=== PATIENT | male | born 1945 | race Caucasian/White ===

== ENCOUNTER 2017-08-18 22:19 | Emergency (ER) | payer OTHER ==
[~2017-08-18] VITALS: Ht 160 cm; Wt 59.0 kg
[2017-08-18 22:20] VITALS: BP_SYST 127
--- NOTE | 2017-08-18 22:30 | NUR ---
Placed in room 5 . Placed on wallpaper installer, blood pressure machine and pulse oximeter. To gown for exam. Side rails up. Report given to Panda LAGSO.
--- NOTE | 2017-08-18 22:30 | NUR ---
Pt came by BLS for SOB, weakness, fever, and cough. Pt hot, dry, and normal. Pt is tachycardic. Pt is in no distress. Will continue to monitor via automobile inspector. AAOx4.
--- NOTE | 2017-08-18 22:32 | NUR ---
ER Dr. Stanton at bedside examining patient.
[2017-08-18] MEDS ORDERED: NS 1000 ML BAG IV ONE (22:45)
[2017-08-18 23:10] LABS: BASOPHILS % (AUTO) 0.7 % (0.0-2.0); EOSINOPHILS % (AUTO) 0.3 % (0.0-4.0); HEMATOCRIT 43.1 % (36-54); HEMOGLOBIN 14.6 g/dL (14.0-18.0); LYMPHOCYTES # (AUTO) 0.5 K/uL (1.0-5.5); LYMPHOCYTES % (AUTO) 16.4 % (20.5-51.5); MEAN CORPUSCULAR HEMOGLOBIN 31 pg (27-31); MEAN CORPUSCULAR HGB CONC 34 % (32-36); MEAN CORPUSCULAR VOLUME 91 fL (79.0-98.0); MONOCYTES % (AUTO) 1.1 % (1.7-9.3); NEUTROPHILS # (AUTO) 2.4 K/uL (1.8-7.7); NEUTROPHILS % (AUTO) 81.5 % (40.0-70.0); PLATELET COUNT (AUTO) 173 K/uL (130-430); RED BLOOD CELL COUNT(AUTO) 4.76 MIL/uL (4.2-6.2); RED CELL DISTRIBUTION WIDTH 12.1 % (9.0-15.0); WHITE BLOOD COUNT (AUTO) 2.9 K/uL (4.8-10.8)
[2017-08-18 23:20] LABS: CREATININE 0.98 mg/dL (0.55-1.30); POTASSIUM 4.2 mmol/L (3.5-5.1)
[2017-08-18 23:24] LABS: PROTHROMBIN TIME 9.9 SECS (9.5-12.5)
[2017-08-18 23:25] LABS: ALBUMIN 3.5 g/dL (3.4-4.8); TOTAL BILIRUBIN 0.5 mg/dL (0.0-1.0)
--- NOTE | 2017-08-18 23:40 | NUR ---
# 20 gauge angiocath placed to L AC. Use of asceptic technique. Opsite placed over site. Blood return noted. Flushed with 10 cc of normal saline. No evidence of infiltration noted. Patient tolerated well.
[2017-08-19 00:44] LABS: BILIRUBIN,URINE NEGATIVE (NEGATIVE); BLOOD, URINE NEGATIVE (NEGATIVE); CLARITY/URINE CLEAR (CLEAR); COLOR,URINE YELLOW (YELLOW); GLUCOSE,URINE 2+ (NEGATIVE); KETONES,URINE NEGATIVE (NEGATIVE); LEUKOCYTE ESTERASE ,URINE 1+ (NEGATIVE); NITRITE, URINE POSITIVE (NEGATIVE); PH,URINE 5.5 (5.0-8.0); PROTEIN URINE NEGATIVE (NEGATIVE); UROBILINOGEN,URINE 0.2 (0.2-1.0)
[2017-08-19 00:47] LABS: BACTERIA,URINE MODERATE /HPF (None Seen); RBC,URINE 0-3 /HPF (0-3)
[2017-08-19] MEDS ORDERED: NACL 0.9% 1,000 ML IV ONE (00:52)
[2017-08-19] MEDS ORDERED: ACETAMINOPHEN 500 MG TABLET PO ONE (01:00)
[2017-08-19] MEDS ORDERED: cefTRIAXone 2 GM VIAL ONE (01:12)
[2017-08-19 03:43] VITALS: BP_SYST 112
--- NOTE | 2017-08-19 03:44 | NUR ---
Patient given written and verbal discharge instructions and verbalizes understanding. ER MD discussed with patient the results and treatment provided. Patient in stable condition. ID arm band removed. IV catheter removed intact and dressing applied, no active bleeding. Rx of keflex, tylenol and ibuprofen given. Patient educated on management of UTI. Pain Scale 0/10. Opportunity for questions provided and answered.
== END 2017-08-19 03:43 | disposition home or self-care (01) ==
LOC: SED 22:19
DX: N39.0 Urinary tract infection, site not specified (principal); M79.1 Myalgia; E11.9 Type 2 diabetes mellitus without complications; Z95.9 Presence of cardiac and vascular implant and graft, unspecified; Z86.79 Personal history of other diseases of the circulatory system
CPT/HCPCS: 36415; 71010; 80053; 81000; 83605; 84484; 85025; 85610; 85730; 86710; 87040; 87086; 87186; 93005; 96361; 96365; 99285; J0696; J7030; J7060